=== PATIENT | female | born 1985 | race Hispanic/Latino ===

== ENCOUNTER 2017-08-13 21:51 | Emergency (ER) | payer OTHER ==
[~2017-08-13] VITALS: Ht 152.4 cm; Wt 73.5 kg
--- OUTSIDE RECORDS SUMMARY | 2017-08-13 21:53 | XMS REPORT | Clinical Summary ---
Author Author [facility] Address Unknown Phone Unavailable Care Team Providers Care Radar Mechanic Name Role Phone PCP Unavailable Allergies Not on File Current Medications Not on file Active Problems Not on file Social History Tobacco Use Types Packs/Day Years Used Date Never Assessed Sex Assigned at Date Recorded Not on file Last Filed Vital Signs Not on file Plan of Treatment Not on file Results Not on fileafter 08/12/2016
[2017-08-14] MEDS ORDERED: CLINDAMYCIN HC150 MG PO (00:03)
[2017-08-14 00:04] VITALS: BP 127/75
== END 2017-08-14 00:08 | disposition home or self-care (01) ==
LOC: ER 21:51
DX: L03.012 Cellulitis of left finger (principal)
CPT/HCPCS: 99282